=== PATIENT | female | born 1970 ===

== ENCOUNTER 2019-03-07 14:31 | Emergency (ER) | payer BC, OTHER ==
--- NOTE | 2019-03-07 16:11 | RAD ---
Date of service: 03/07/2019 HISTORY: cough COMPARISON: No prior. TECHNIQUE: Chest PA and lateral views FINDINGS: LUNGS: No active pulmonary disease. PLEURA: No significant pleural effusion identified. No pneumothorax apparent. CARDIOVASCULAR: No aortic atherosclerotic calcification present. Normal cardiac size. No pulmonary vascular congestion. OSSEOUS STRUCTURES: No significant abnormalities. VISUALIZED UPPER ABDOMEN: Normal. OTHER FINDINGS: None. IMPRESSION: No active disease.
[2019-03-07 16:24] LABS: BLOOD UREA NITROGEN 15 mg/dl (7-17); CALCIUM 10.3 mg/dL (8.4-10.2); GFR NON-AFRICAN AMERICAN > 60
[2019-03-07 16:31] LABS: BASO # 0.1 K/uL (0.0-0.2); BASO % 0.7 % (0.0-2.0); EOS # 0.1 K/uL (0.0-0.7); EOS % 1.5 % (0.0-4.0); HEMOGLOBIN 14.2 g/dL (12.0-16.0); LYMPH # 3.4 K/uL (1.0-4.3); MEAN CORPUSCULAR HEMOGLOBIN 30.1 pg (27.0-31.0); MEAN CORPUSCULAR HGB CONC 33.4 g/dL (33.0-37.0); MEAN PLATELET VOLUME 8.9 fl (7.2-11.7); MONO # 0.6 K/uL (0.0-0.8); NEUT # 5.4 K/uL (1.8-7.0); NEUT % 56.8 % (50.0-75.0); NRBC % 0.1 % (0.0-0.0); RBC 4.74 Mil/uL (3.80-5.20); RED CELL DISTRIBUTION WIDTH 13.6 % (11.5-14.5); WHITE BLOOD COUNT 9.6 K/uL (4.8-10.8)
--- NOTE | 2019-03-07 17:19 | ED PDOC ---
HPI: Chest Pain Time Seen by Provider: 03/07/19 15:11 Chief Complaint (Nursing): Chest Pain Chief Complaint (Provider): Chest Pain History Per: Patient History/Exam Limitations: no limitations Onset/Duration Of Symptoms: Days Current Symptoms Are (Timing): Still Present Additional Complaint(s): 48 y/o female with a PMHx of HTN and "Breathing Problems" presents to the ED for evaluation of chest pain. Patient reports of having had multiple episodes in the last couple of weeks where she wakes up in the middle of the night with sharp chest pain and the feeling of a "bubble" in her chest. Patient notes symptoms happened last night but was associated with numbness/heaviness to the left arm thus prompting today's visit. Otherwise, patient denies shortness of breath, r adiation of pain and neurological deficits. PMD: Dr. Frias The Past Medical History Reviewed: Historical Data, Nursing Documentation, Vital Signs Vital Signs: Last Vital Signs Temp 98.6 F 03/07/19 14:39 Pulse 99 H 03/07/19 14:39 Resp 16 03/07/19 14:39 BP 131/94 H 03/07/19 14:39 Pulse Ox 97 03/07/19 14:39 - Medical History PMH: HTN - Surgical History Surgical History: Cholecystectomy (2001) - Family History Family History: States: Unknown Family Hx - Home Medications Home Medications: Ambulatory Orders Medication Instructions Recorded Azithromycin [Zithromax Tri-Frankie] 500 mg PO DAILY #3 tablet 03/08/17 Fluticasone/Salmeterol 500/50 1 puff IH Q12 #1 puff 03/08/17 [Advair Diskus 500/50] Methylprednisolone [Medrol Dose 4 mg PO DAILY #21 mg 03/08/17 Pack (21 tabs)] Promethazine HCl/Codeine 5 ml PO PRN PRN #1 syrup 03/08/17 [Prometh-Codein 6.25-10 mg/5 ml] Famotidine [Pepcid AC] 10 mg PO DAILY #30 tablet 03/07/19 - Allergies Allergies/Adverse Reactions: Allergies Allergy/AdvReac Type Severity Reaction Status Date / Time No Known Allergies Allergy Verified 03/05/17 15:32 Review of Systems ROS Statement: Except As Marked, All Systems Reviewed And Found Negative Cardiovascular: Positive for: Chest Pain Respiratory: Negative for: Shortness of Breath Neurological: Positive for: Numbness Physical Exam - Reviewed Nursing Documentation Reviewed: Yes Vital Signs Reviewed: Yes - Physical Exam Appears: Positive for: No Acute Distress (morbidly obese) Head Exam: Positive for: ATRAUMATIC, NORMOCEPHALIC Skin: Positive for: Normal Color, Warm, Dry Eye Exam: Positive for: Normal appearance, EOMI, PERRL Neck: Positive for: Normal, Painless ROM, Supple Cardiovascular/Chest: Positive for: Regular Rate, Rhythm. Negative for: Murmur Respiratory: Negative for: Respiratory Distress Gastrointestinal/Abdominal: Positive for: Normal Exam, Soft. Negative for: Tenderness Extremity: Positive for: Normal ROM. Negative for: Deformity Neurological/Psych: Positive for: Awake, Alert, Oriented (x3), sales assistant II-XII (intact). Negative for: Motor/Sensory Deficits - Laboratory Results Result Diagrams: 03/07/19 15:57 03/07/19 15:57 Lab Results: Troponin I < 0.0120 ng/mL (0.00-0.120) 03/07/19 15:57 - ECG O2 Sat by Pulse Oximetry: 97 (RA) Pulse Ox Interpretation: Normal Medical Decision Making Medical Decision Making: Time:1512 A/P: Workup for chest pain. -- Possibly gastritis -- Cardiac workup with labs, CXR and ranitidine for gastirits -- EKG -- BMP -- Troponin I -- CBC with Differentials -- CXR Two Views -- Pepcid 40 mg IVP Scribe Attestation: Documented by Nadia Deal, acting as a scribe Ying Bales MD. Provider Scribe Attestation: All medical record entries made by the Scribe were at my direction and personally dictated by me. I have reviewed the chart and agree that the record accurately reflects my personal performance of the history, physical exam, medical decision making, and the department course for this patient. I have also personally directed, reviewed, and agree with the discharge instructions and disposition. Disposition - Clinical Impression Clinical Impression: Atypical chest pain - Disposition Disposition Time: 17:04 Condition: IMPROVED Additional Instructions: Take Gastritis medication daily. Follow up with primary doctor if pain not improved. Return to the emergency department if symptoms worsen or if new symptoms develop. Prescriptions: Famotidine [Pepcid AC] 10 mg PO DAILY #30 tablet Instructions: Chest Pain That Is Not Caused by the Heart (DC) Forms: [employer] (Vietnamese) Print Language: KAZAKH
[2019-03-07 17:33] VITALS: BP 127/78; PULSE 78; RESP 20; TEMP 97.6
[2019-03-08 16:36] VITALS: O2SAT 97
--- NOTE | 2019-03-08 21:25 | CARD ---
APPROVED REPORT Date of service: 03/07/2019 EKG Measurement Heart [id number] <Conclusion> Normal sinus rhythm Normal ECG
== END 2019-03-07 17:37 | disposition home or self-care (01) ==
LOC: H.ER 14:31
DX: R07.89 Other chest pain (principal); I10 Essential (primary) hypertension